=== PATIENT | female | born 1970 | race African-American/Black ===

== ENCOUNTER 2022-07-14 07:38 | Outpatient (CLI) | payer BC | END 2022-07-14 07:39 | disposition home or self-care (01) | LOC: CSHMAMMO 07:38 | PROVIDERS: ATTEND Family Medicine Sports Medicine | DX: Z12.31 Encounter for screening mammogram for malignant neoplasm of breast (principal); N64.89 Other specified disorders of breast | CPT/HCPCS: 77063; 77067 ==